=== PATIENT | male | born 1990 | race Caucasian/White ===

== ENCOUNTER 2017-07-11 19:16 | Emergency (ER) | payer MEDICAID ==
[~2017-07-11] VITALS: Ht 180.3 cm; Wt 73.4 kg
[2017-07-11 19:26] VITALS: BP 123/74
[2017-07-11] MEDS ORDERED: ALBUTEROL SULFATE 2.5 MG/3 ML NPPB ONE (20:30)
[2017-07-11] MEDS ORDERED: ALBUTEROL SULFATE 2.5 MG/3 ML ONE (20:33)
[2017-07-11] MEDS ORDERED: SERT50TA5 PO (20:34)
== END 2017-07-11 21:32 | disposition home or self-care (01) ==
LOC: ED 21:26
DX: J20.9 Acute bronchitis, unspecified (principal); B96.89 Other specified bacterial agents as the cause of diseases classified elsewhere
CPT/HCPCS: 71020; 94640; 99284; J7613